=== PATIENT | male | born 1970 | race Caucasian/White ===

== ENCOUNTER 2016-04-25 11:07 | Emergency (ER) | payer OTHER ==
[~2016-04-25] VITALS: Wt 79.5 kg
[2016-04-25] MEDS ORDERED: HYDROCODONE/APAP (10/325) TAB PO ONE (12:30)
[2016-04-25] MEDS ORDERED: KETOROLAC 60 MG INJ IM STA (12:30)
--- NOTE | 2016-04-25 13:48 | RADRPT ---
PROCEDURE: CT Cervical Spine without contrast. CLINICAL INDICATION: Loss of feeling and upper arms. TECHNIQUE: A CT of the cervical spine was performed on a CT scanner utilizing thin section axial images from the skull base through the thoracic inlet. Sagittal and coronal reformatted images were made. The CTDIvol is 22.18 mGy and the DLP is 441.94 mGycm. Automated exposure control, adjustment of the mA and/or kV according to patient size, use of iterative reconstruction technique. COMPARISON: No prior studies are available for comparison. FINDINGS: Straightening of the cervical spine likely positional in nature or related to spasm. Vertebral bodi es are normal in height, density, and alignment. No vertebral body subluxation is seen. No fracture is evident. C2-3: The disc is normal in height. Moderate right facet joint arthropathy. No significant disk bulg e or protrusion is evident. There is no central canal stenosis or foraminal narrowing. C3-4: The disc is normal in height. No significant disk bulge or protrusion is evident. There is no central canal stenosis or foraminal narrowing. C4-5: The disc is normal in height. No significant disk bulge or protrusion is evident. There is no central canal stenosis or foraminal narrowing. C5-6: Severe degenerative disk space narrowing, subchondral sclerosis and anterior endplate spurring . Bilateral marked uncinate process hypertrophy and posterior spondylitic ridging. Mild bilateral facet joint arthropathy left greater than right. Severe bilateral foraminal stenosis without centra l canal stenosis. No significant disk bulge or protrusion is evident. C6-7: Severe degenerative disk space narrowing, subchondral sclerosis, anterior endplate spurring. Posterior spondylitic ridging with bilateral uncinate process hypertrophy right greater than left r esulting in moderate to severe right foraminal stenosis without left foraminal stenosis. Minimal di sk bulging and hypertrophy of ligamentum flavum resulting in mild central canal stenosis of 9 mm in AP dimension. C7-T1: Preservation of disk height. 2 mm of anterolisthesis of C7-T1 with uncovering of the posteri or disk. No significant disk bulge or protrusion is evident. There is no central canal stenosis or foraminal narrowing. No paraspinal soft tissue abnormality. The lung apices are clear. IMPRESSION: 1. No fracture or dislocation. No paraspinal soft tissue abnormality. 2. Multilevel degenerative disk and spondylitic changes greatest at C5-C6 and C6-C7 as described in detail above. RPTAT:AAJJ Crescencio Landry Physician Date Time Electronically viewed and signed by Crescencio Landry Physician on 04/25/2016 13:47 YON/
--- NOTE | 2016-04-25 13:55 | RADRPT ---
PROCEDURE: CT thoracic spine CLINICAL INDICATION: Back pain TECHNIQUE: A CT of the thoracic spine was performed on a multidetector CT scanner utilizing high-r esolution axial imaging from the cervical thoracic junction through the thoracolumbar junction. Sag ittal, coronal, and multiplanar reformatted images were made. The CTDIvol is 18.85 mGy and the DLP i s 769.14 mGycm. One or more of the following dose reduction techniques were utilized: Automated exp osure control, adjustment of the mA and/or kV according to patient size, use of iterative reconstruc tion technique. COMPARISON: None. FINDINGS: The vertebral bodies are normal in height, density, and alignment with preservation of disk interspa roman. No evidence of disk protrusion, central canal, or foraminal stenosis at any level. Posterior spinous processes and posterior elements are intact. No significant facet joint arthropat hy is identified. The thoracic aorta is normal in caliber. The visualized intrathoracic and intra- abdominal contents are grossly unremarkable. No evidence of rib fracture. IMPRESSION: 1. No fracture or dislocation. No soft tissue abnormality. RPTAT:AAJJ Physician Hunter Date Time Electronically viewed and signed by Physician Hunter on 04/25/2016 13:55 YON/
[2016-04-25] MEDS ORDERED: CEPH-443 PO (14:17)
--- NOTE | 2016-04-25 14:33 | RADRPT ---
PROCEDURE: CT L-Spine. CLINICAL INDICATION: Back pain TECHNIQUE: A CT of the lumbar spine was performed on a CT scanner utilizing high-resolution thin s ection axial images from the thoracic lumbar junction through the lumbar sacral junction. Sagittal and coronal and multiplanar reformatted images were made.The CTDIvol is 13.89 mGy and the DLP is 355 .24 mGycm. One or more of the following dose reduction techniques were utilized: Automated exposure control, adjustment of the mA and/or kV according to patient size, use of iterative reconstruction technique. COMPARISON: None. FINDINGS: The vertebral bodies are normal in height and alignment with mild osteopenia. The upper levels demo nstrate no disk protrusion, central canal or foraminal stenosis. T12-L1: The disk is normal in height. No disk protrusion, central canal, or foraminal stenosis. L1-2: The disk is normal in height. Minimal circumferential disk bulging without disk protrusion, c entral canal, or foraminal stenosis. Mild facet joint arthropathy. L2-3: The disk is normal in height. Mild circumferential disk bulging without focal disk protrusion , central canal, or foraminal stenosis. Mild facet joint arthropathy. L3-4: Intact posterior fusion rods and bipedicular fixation screws without evidence of lucency surro unding transpedicular screws to suggest osteolysis or loosening. Transit lumbar interbody fusion (T L I F) graft in place. Marked subchondral sclerosis and irregularity of the adjacent endplates bettye picious for pseudoarthrosis. Correlate clinically. No central canal or foraminal or foraminal sten osis. L4-5: Intact posterior fusion rods and bipedicular fixation screws without evidence of lucency surro unding the transpedicular screws to suggest osteolysis or loosening. Bilateral osseous effusion of the facet joints The disk is normal in height. Circumferential disk bulging resulting in moderate b ilateral foraminal stenosis. No central canal stenosis. L5-S1 marked loss of vertebral disk height and subchondral endplate sclerosis. Grade 1 anterolisthe sis of L5 on S1 of 12 mm uncovering of the posterior disk and circumferential disk bulging. Rule mo derate to severe hypertrophic facet joint arthropathy with bilateral osseous fusion. Severe right a nd moderate left foraminal stenosis without central canal stenosis. Left laminotomy defect. IMPRESSION: 1. Posterior lumbar fusion of L4-L5 end L5-S1 with intact bipedicular screws without evidence of savage dware failure. 2. Interbody bone graft with marked subchondral sclerosis and endplate irregularity L4-L5 suspiciou s for pseudoarthrosis. Correlate clinically. 3. Grade 1 anterolisthesis of L5 on S1 of 12 mm with a left laminotomy defect and bilateral posteri or lumbar osseous fusion. Bilateral foraminal stenosis severe on the right and moderate on the left . 4. Additional findings detailed above. RPTAT:AAJJ Physician Hunter Date Time Electronically viewed and signed by Physician Hunter on 04/25/2016 14:33 YON/
[2016-04-25] MEDS ORDERED: HYDR-902 PO (14:42)
[2016-04-25] MEDS ORDERED: CARI350T PO (14:42)
[2016-04-25] MEDS ORDERED: IBUP800T25 PO (14:42)
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
== END 2016-04-25 15:04 | disposition home or self-care (01) ==
LOC: FTE 11:07
DX: M54.2 Cervicalgia (principal); M54.5 Low back pain
CPT/HCPCS: 72125; 72128; 72131; 96372; J1885; Z7502; Z7610